=== PATIENT | male | born 1970 | race Caucasian/White ===

== ENCOUNTER 2018-05-29 17:42 | Emergency (ER) | payer OTHER ==
[2018-05-29 17:47] VITALS: Ht 165.1 cm
[2018-05-29 19:18] VITALS: BP 143/102
== END 2018-05-29 19:18 | disposition home or self-care (01) ==
LOC: ED 17:42
DX: S81.812A Laceration without foreign body, left lower leg, initial encounter (principal); W22.8XXA Striking against or struck by other objects, initial encounter; Y93.89 Activity, other specified; Y92.89 Other specified places as the place of occurrence of the external cause; Y99.8 Other external cause status
CPT/HCPCS: 90715; J2001; Q0092